=== PATIENT | male | born 1980 | race Hispanic/Latino ===

== ENCOUNTER 2019-03-03 08:25 | Emergency (ER) | payer OTHER ==
[2019-03-03] MEDS ORDERED: AMOXicillin 250 MG CAP ONE (08:44)
== END 2019-03-03 08:47 | disposition home or self-care (01) ==
LOC: BURERS 08:25
DX: J20.9 Acute bronchitis, unspecified (principal); I10 Essential (primary) hypertension; F43.10 Post-traumatic stress disorder, unspecified
CPT/HCPCS: 99283

== ENCOUNTER 2020-02-08 10:43 | Emergency (ER) | payer OTHER ==
--- NOTE | 2020-02-08 11:24 | RAD ---
XR Chest Pa Lat STANDARD HISTORY: Cough COMPARISON: None FINDINGS: The heart size is normal. The lungs are well expanded without focal areas of consolidation, pneumothorax or pleural effusions. IMPRESSION: No radiographic evidence of acute cardiopulmonary process.
== END 2020-02-08 11:37 | disposition home or self-care (01) ==
LOC: BURERS 10:43
DX: J06.9 Acute upper respiratory infection, unspecified (principal); I10 Essential (primary) hypertension; F43.10 Post-traumatic stress disorder, unspecified; E78.5 Hyperlipidemia, unspecified
CPT/HCPCS: 71046

== ENCOUNTER 2021-08-02 10:55 | Emergency (ER) | payer OTHER | END 2021-08-02 12:12 | disposition home or self-care (01) | LOC: BURERS 10:55 | DX: B34.9 Viral infection, unspecified (principal); Z20.822 Contact with and (suspected) exposure to COVID-19; I10 Essential (primary) hypertension; E78.5 Hyperlipidemia, unspecified | CPT/HCPCS: 71046 ==